=== PATIENT | female | born 1935 | race Caucasian/White ===

== ENCOUNTER 2018-09-22 20:01 | Inpatient (IN) | payer BC ==
[~2018-09-22] VITALS: Ht 165.1 cm; Wt 55.4 kg
[2018-09-22 20:05] VITALS: BP_SYST 138
[2018-09-22] MEDS ORDERED: LORazepam 2 MG/ML VIAL IVP ONE (20:45)
[2018-09-22] MEDS ORDERED: methylPREDNISolone SOD SUCC/PF 62.5 MG/ML VIAL IVP ONE (20:45)
[2018-09-22] MEDS ORDERED: IPRATROPIUM BROM 0.5 MG/2.5 ML VIAL.NEB (ATROVENT) INH ONE (20:45)
[2018-09-22] MEDS ORDERED: ALBUTEROL SULFATE 0.083% 2.5 MG/3 ML VIAL.NEB INH ONE (20:45)
[2018-09-22] MEDS ORDERED: FAMO20TA8 GT (20:59)
[2018-09-22] MEDS ORDERED: DOCU-144 GT (21:00)
[2018-09-22] MEDS ORDERED: MOM PO (21:02)
[2018-09-22] MEDS ORDERED: LACT10SO6 GT (21:04)
[2018-09-22] MEDS ORDERED: BISA10SU61 RC (21:06)
[2018-09-22] MEDS ORDERED: IPRA3AMP9 INH (21:06)
[2018-09-22] MEDS ORDERED: MULT9LIQ6 GT (21:08)
[2018-09-22] MEDS ORDERED: [UNRECOGNIZED DRUG - OTHER] GT (21:10)
[2018-09-22] MEDS ORDERED: OXCA300T4 GT (21:10)
[2018-09-22] MEDS ORDERED: OXCA150T5 GT (21:11)
[2018-09-22] MEDS ORDERED: BUSP5TAB3 GT (21:13)
[2018-09-22 21:15] LABS: BASOPHILS # (AUTO) 0.1 K/uL (0.0-0.2); BASOPHILS % (AUTO) 0.4 % (0.0-2.0); EOSINOPHILS # (AUTO) 0.4 K/uL (0.0-0.4); EOSINOPHILS % (AUTO) 2.3 % (0.0-4.0); HEMATOCRIT 38.2 % (36-48); HEMOGLOBIN 12.7 g/dL (12.0-16.0); LYMPHOCYTES # (AUTO) 2.2 K/uL (1.0-5.5); LYMPHOCYTES % (AUTO) 13.2 % (20.5-51.5); MEAN CORPUSCULAR HEMOGLOBIN 31 pg (27-31); MEAN CORPUSCULAR HGB CONC 33 % (32-36); MEAN CORPUSCULAR VOLUME 93 fL (79.0-98.0); MONOCYTES # (AUTO) 0.9 K/uL (0.0-1.0); MONOCYTES % (AUTO) 5.4 % (1.7-9.3); NEUTROPHILS # (AUTO) 13.4 K/uL (1.8-7.7); NEUTROPHILS % (AUTO) 78.7 % (40.0-70.0); PLATELET COUNT (AUTO) 484 K/uL (130-430); RED BLOOD CELL COUNT(AUTO) 4.09 MIL/uL (4.2-6.2); RED CELL DISTRIBUTION WIDTH 14.9 % (9.0-15.0)
[2018-09-22] MEDS ORDERED: LORazepam 2 MG/ML VIAL (FOR ER USE) ONE (21:15)
[2018-09-22] MEDS ORDERED: Maalox GT (21:19)
[2018-09-22 21:23] LABS: PROTHROMBIN TIME 10.5 SECS (9.5-12.5)
[2018-09-22] MEDS ORDERED: LACT-200 PO (21:29)
[2018-09-22 21:32] LABS: ANION GAP 10 (5-15); CALCIUM 9.6 mg/dL (8.4-11.0); CHLORIDE 106 mmol/L (98-107); CREATININE 1.03 mg/dL (0.55-1.30); GLUCOSE 141 mg/dL (70-99); POTASSIUM 4.7 mmol/L (3.5-5.1); SODIUM SERUM 142 mmol/L (136-145); UREA NITROGEN, BLOOD 41 mg/dL (8-21)
[2018-09-22 21:37] LABS: ALANINE AMINOTRANSFERASE 190 U/L (12-78); ALBUMIN 2.6 g/dL (3.4-4.8); ASPARTATE AMINOTRANSFERASE 85 U/L (10-37); TOTAL BILIRUBIN 0.4 mg/dL (0.0-1.0)
[2018-09-22] MEDS ORDERED: DIPHENHYDRAMINE INJ 50 MG/ML VIAL IVP ONE (22:30)
[2018-09-23 00:40] LABS: BILIRUBIN,URINE NEGATIVE (NEGATIVE); BLOOD, URINE 1+ (NEGATIVE); CLARITY/URINE CLEAR (CLEAR); COLOR,URINE YELLOW (YELLOW); GLUCOSE,URINE NEGATIVE (NEGATIVE); KETONES,URINE NEGATIVE (NEGATIVE); LEUKOCYTE ESTERASE ,URINE 3+ (NEGATIVE); NITRITE, URINE POSITIVE (NEGATIVE); PH,URINE 6.5 (5.0-8.0); PROTEIN URINE 1+ (NEGATIVE)
[2018-09-23 00:46] LABS: BACTERIA,URINE MANY /HPF (None Seen); WBC,URINE >100 /HPF (0-3); YEAST,URINE Moderate /HPF (None Seen)
[2018-09-23] MEDS ORDERED: NS 1000 ML IV.SOLN IV ONE (01:15)
[2018-09-23 01:54] VITALS: BP_SYST 135
[2018-09-23 08:00] VITALS: BP_SYST 115
[2018-09-23] MEDS ORDERED: MILK OF MAGNESIA 30 ML UDC PO PRN (10:45)
[2018-09-23] MEDS ORDERED: IPRATROPIUM/ALBUTEROL SULFATE 3 ML AMPUL.NEB (DUONEB) INH PRN (10:45)
[2018-09-23] MEDS ORDERED: IPRATROPIUM BROM 0.5 MG/2.5 ML VIAL.NEB (ATROVENT) INH PRN (10:45)
[2018-09-23] MEDS ORDERED: IPRATROPIUM BROM 0.5 MG/2.5 ML VIAL.NEB (ATROVENT) INH ONE (10:45)
[2018-09-23] MEDS ORDERED: BISACODYL 10 MG/SUPPOSITORY RC PRN (10:45)
[2018-09-23] MEDS ORDERED: ALBUTEROL SULFATE 0.083% 2.5 MG/3 ML VIAL.NEB INH ONE (10:45)
[2018-09-23] MEDS ORDERED: ALBUTEROL SULFATE 0.083% 2.5 MG/3 ML VIAL.NEB INH PRN (10:45)
[2018-09-23] MEDS ORDERED: methylPREDNISolone SOD SUCC/PF 62.5 MG/ML VIAL IVP ONE (10:45)
[2018-09-23] MEDS ORDERED: busPIRone HCL 5 MG TABLET GT ONE ×2 (10:45→14:30)
[2018-09-23] MEDS: cefTRIAXone 1 GM in D5W 50 ML IV SCH (11:32)
[2018-09-23 11:40] VITALS: BP_SYST 115
[2018-09-23 12:46] VITALS: BP_SYST 124
[2018-09-23] MEDS: LORazepam 1 MG TABLET GT PRN (12:49)
[2018-09-23] MEDS: AZITHROMYCIN 500 MG in NS 250 ML IV SCH (12:49)
[2018-09-23] MEDS: 0.45% NACL 1,000 ML IV SCH (15:57)
[2018-09-23 16:57] VITALS: BP_SYST 126
[2018-09-23] MEDS: OXcarbazepine 150 MG TABLET(TRILEPTAL) GT SCH (18:05)
[2018-09-23] MEDS ORDERED: IPRATROPIUM BROM 0.5 MG/2.5 ML VIAL.NEB (ATROVENT) INH SCH (19:00)
[2018-09-23 20:00] VITALS: BP_SYST 118
[2018-09-23] MEDS: busPIRone HCL 5 MG TABLET GT SCH (20:16)
[2018-09-23] MEDS: IPRATROPIUM BROM 0.5 MG/2.5 ML VIAL.NEB (ATROVENT) INH SCH (20:20)
[2018-09-23] MEDS: ALBUTEROL SULFATE 0.083% 2.5 MG/3 ML VIAL.NEB INH SCH (20:20)
[2018-09-23] MEDS: methylPREDNISolone SOD SUCC/PF 62.5 MG/ML VIAL IVP SCH (20:54)
[2018-09-23] MEDS ORDERED: OXcarbazepine 150 MG TABLET(TRILEPTAL) GT SCH (21:00)
[2018-09-23] MEDS ORDERED: methylPREDNISolone SOD SUCC/PF 62.5 MG/ML VIAL IVP SCH (22:00)
[2018-09-24 00:19] VITALS: BP_SYST 124
[2018-09-24] MEDS: IPRATROPIUM BROM 0.5 MG/2.5 ML VIAL.NEB (ATROVENT) INH SCH ×3 (01:58→13:53)
[2018-09-24] MEDS: ALBUTEROL SULFATE 0.083% 2.5 MG/3 ML VIAL.NEB INH SCH ×3 (01:58→13:53)
[2018-09-24] MEDS: LORazepam 1 MG TABLET GT PRN ×2 (03:59→09:59)
[2018-09-24] MEDS: methylPREDNISolone SOD SUCC/PF 62.5 MG/ML VIAL IVP SCH (05:09)
[2018-09-24 07:48] LABS: BASOPHILS % (AUTO) 0.2 % (0.0-2.0); EOSINOPHILS % (AUTO) 0.1 % (0.0-4.0); HEMATOCRIT 34.3 % (36-48); HEMOGLOBIN 11.1 g/dL (12.0-16.0); LYMPHOCYTES # (AUTO) 1.2 K/uL (1.0-5.5); LYMPHOCYTES % (AUTO) 10.6 % (20.5-51.5); MEAN CORPUSCULAR HEMOGLOBIN 30 pg (27-31); MEAN CORPUSCULAR HGB CONC 33 % (32-36); MEAN CORPUSCULAR VOLUME 94 fL (79.0-98.0); MONOCYTES # (AUTO) 0.2 K/uL (0.0-1.0); NEUTROPHILS # (AUTO) 9.6 K/uL (1.8-7.7); NEUTROPHILS % (AUTO) 87.1 % (40.0-70.0); PLATELET COUNT (AUTO) 457 K/uL (130-430); RED BLOOD CELL COUNT(AUTO) 3.67 MIL/uL (4.2-6.2); RED CELL DISTRIBUTION WIDTH 14.5 % (9.0-15.0)
[2018-09-24 08:00] LABS: ALANINE AMINOTRANSFERASE 263 U/L (12-78); ALBUMIN 2.2 g/dL (3.4-4.8); ANION GAP 7 (5-15); ASPARTATE AMINOTRANSFERASE 157 U/L (10-37); CALCIUM 9.7 mg/dL (8.4-11.0); CHLORIDE 112 mmol/L (98-107); CREATININE 0.94 mg/dL (0.55-1.30); GLUCOSE 172 mg/dL (70-99); POTASSIUM 4.7 mmol/L (3.5-5.1); SODIUM SERUM 140 mmol/L (136-145); TOTAL BILIRUBIN 0.3 mg/dL (0.0-1.0); UREA NITROGEN, BLOOD 43 mg/dL (8-21)
[2018-09-24] MEDS ORDERED: FAMOTIDINE 20 MG TABLET GT SCH (09:00)
[2018-09-24 09:54] VITALS: BP_SYST 116
[2018-09-24] MEDS: OXcarbazepine 150 MG TABLET(TRILEPTAL) GT SCH ×2 (10:00→13:31)
[2018-09-24] MEDS: busPIRone HCL 5 MG TABLET GT SCH ×2 (10:00→15:02)
[2018-09-24] MEDS: cefTRIAXone 1 GM in D5W 50 ML IV SCH (10:04)
[2018-09-24] MEDS: AZITHROMYCIN 500 MG in NS 250 ML IV SCH (11:57)
[2018-09-24 11:58] VITALS: BP_SYST 114
[2018-09-24] MEDS ORDERED: LEVAQUIN GT (13:09)
[2018-09-24] MEDS ORDERED: METR500T GT (13:10)
[2018-09-24] MEDS ORDERED: LACT1CAP57 GT (13:11)
[2018-09-24] MEDS: 0.45% NACL 1,000 ML IV SCH (13:31)
[2018-09-24 14:36] VITALS: BP_SYST 114
[2018-09-24 15:46] VITALS: BP_SYST 113
[2018-09-24] MEDS ORDERED: PREDNISONE 20 MG TABLET GT SCH (21:00)
[2018-09-24] MEDS ORDERED: QUEtiapine FUMARATE 25 MG TABLET PO SCH (21:00)
== END 2018-09-24 16:00 | DRG 177 ==
LOC: SED 20:01 → INTOOBSV 09-23 00:18 → SMU 09-23 00:18 → OBSVTOIN 09-23 15:03
PROVIDERS: ADMIT Internal Medicine Hospice and Palliative Medicine; ATTEND Internal Medicine Hospice and Palliative Medicine
DX: J69.0 Pneumonitis due to inhalation of food and vomit (principal); E43 Unspecified severe protein-calorie malnutrition; J44.1 Chronic obstructive pulmonary disease with (acute) exacerbation; F03.90 Unspecified dementia, unspecified severity, without behavioral disturbance, psychotic disturbance, mood disturbance, and anxiety; R13.10 Dysphagia, unspecified; M19.90 Unspecified osteoarthritis, unspecified site; Z90.49 Acquired absence of other specified parts of digestive tract; Z93.1 Gastrostomy status; Z88.0 Allergy status to penicillin; Z88.2 Allergy status to sulfonamides; Z79.899 Other long term (current) drug therapy; Z87.891 Personal history of nicotine dependence; Z86.73 Personal history of transient ischemic attack (TIA), and cerebral infarction without residual deficits; Z83.3 Family history of diabetes mellitus; Z85.038 Personal history of other malignant neoplasm of large intestine
CPT/HCPCS: 36415; 71045; 80053; 81000-TC; 83605; 84484; 85025; 85610-TC; 85730-TC; 87040-TC; 87081; 87086; 87186-TC; 93005; 94640; 96361; 96365; 96366; 96375; 99291; G0378; J0456; J0696; J1200; J1956; J2060; J2930; J7050; J7060; J7613